=== PATIENT | female | born 1970 | race Caucasian/White ===

== ENCOUNTER 2020-11-22 23:37 | Emergency (ER) | payer OTHER ==
[2020-11-22 23:42] VITALS: TEMP 99.7
[2020-11-23] MEDS ORDERED: AMOXIC-POT CLAV 875MG STARTER PACK 2 TAB BTL PO STA (00:12)
[2020-11-23] MEDS ORDERED: KETOROLAC 15 MG/ML 1 ML VIAL IM STA (00:19)
[2020-11-23 00:54] VITALS: BP 198/114; PULSE 98; RESP 16
--- NOTE | 2020-11-23 00:59 | ED ---
ENT HPI - General Chief complaint: Dental/Oral Stated complaint: Facial Swelling Time Seen by Provider: 11/23/20 00:11 Source: patient Mode of arrival: ambulatory Limitations: no limitations - History of Present Illness Initial comments: 50yo female presenting for cc of right lower dental pain. pt states that for the past day her right lower tooth has been bugging her. she states it was chipped for quite some time prior to the development of this pain. Patient denies any fevers chest pain shortness of breath drooling difficulty tolerating oral secre tions difficulty breathing. Patient denies any swelling of the neck or below the tongue. Patient denies fevers chills or general malaise. Patient states she does have some right-sided facial swelling.Patient denies additional complaints. - Related Data Previous Rx's Medication Instructions Recorded Amoxic-Pot Clav 875-125Mg 1 tab PO Q12HR 7 Days #14 tab 11/23/20 [Augmentin 875-125] Allergies Allergy/AdvReac Type Severity Reaction Status Date / Time acetaminophen [From Lortab] Allergy Unknown Verified 11/22/20 23:43 codeine Allergy Unknown Verified 11/22/20 23:43 hydrocodone [From Lortab] Allergy Unknown Verified 11/22/20 23:43 metronidazole [From Flagyl] Allergy Unknown Verified 11/22/20 23:43 Review of Systems ROS Statement: Those systems with pertinent positive or pertinent negative responses have been documented in the HPI. ROS Other: All systems not noted in ROS Statement are negative. Past Medical History Past Medical History: No Reported History History of Any Multi-Drug Resistant Organisms: None Reported Past Surgical History: Cholecystectomy, Hysterectomy Additional Past Surgical History / Comment(s): trigger finger surgery. Past Psychological History: No Psychological Hx Reported Smoking Status: Current every day smoker Past Alcohol Use History: None Reported Past Drug Use History: None Reported General Exam - General Exam Comments Initial Comments: General: The patient is awake and alert, in no distress Eye: +3 mm pupils are equal, round and reactive to light, extra-ocular movements are intact. No nystagmus. There is normal conjunctiva bilaterally. No signs of icterus. Ears, nose, mouth and throat: There are moist mucous membranes and no oral lesions. patient overall is very poor dentition. There is multiple cracked teeth especially in the right lower side. Patient has tenderness to percussion of tooth number 29, no apparent fluctuant area of abscess. Patient does have some mild right-sided facial swelling it does not extend below the angle of the mandible there is no swelling below the tongue nor pain to palpation under the tongue patient hasn't no tripoding no drooling no stridor she is to tolerate oral secretions without difficulty Neck: The neck is supple, there is no tenderness or JVD. Cardiovascular: There is a regular rate and rhythm. No murmur, rub or gallop is appreciated. Respiratory: Lungs are clear to auscultation, respirations are non-labored, breath sounds are equal. No wheezes, stridor, rales, or rhonchi Musculoskeletal: Normal ROM, no tenderness. Strength 5/5. Sensation intact. Pulses equal bilaterally 2+. Neurological: A&O x 3. CN II-XII intact grossly, There are no obvious motor or sensory deficits. Coordination appears grossly intact. Speech is normal. Skin: Skin is warm and dry and no rashes or lesions are noted. Psychiatric: Cooperative, appropriate mood & affect, normal judgment. Limitations: no limitations Course Vital Signs 11/22/20 11/23/20 23:38 00:53 Temperature 99.7 F H Pulse Rate 110 H 98 Respiratory 20 16 Rate Blood Pressure 230/92 198/114 O2 Sat by Pulse 99 98 Oximetry Medical Decision Making - Medical Decision Making 50yo female presenting for cc of dental pain. states she is too sensitive for pain medications but is in a lot of pain. no signs of ludqigs angina. pt does not appear toxic. BP elevated but she states she is in so much pain and her dog just had a seizure. pt denies hx of HTN, denies cp, headaches, dyspnea, leg swelling, urinary changes/decreased urination, nausea, vomiting, viscual changes, weakness, sensation deficits. patient will be initiated oral antibiotics she is to follow-up with a dentist return for worsening swelling swelling below the tongues welling of the neck difficulty tolerating oral secretions or breathing, fevers, facial redness. patient statse she will f/u for blood pressure elevated and monitor at home. felt to be situations due to pain/life stressors. pt discharged appearing well. Attending Damaso Disposition Clinical Impression: Pain, dental, Facial swelling, Elevated blood lead level Disposition: HOME SELF-CARE Condition: Good Instructions (If sedation given, give patient instructions): Dental Abscess (ED), Toothache (ED) Additional Instructions: Please use medication as discussed. Please follow-up with dentist in the next 1-2 days. Please return to emergency room if the symptoms increase or worsen or for any other concerns-fevers worsening swelling swelling below the tongue swelling of the neck. Prescriptions: Amoxic-Pot Clav 875-125Mg [Augmentin 875-125] 1 tab PO Q12HR 7 Days #14 tab Is patient prescribed a controlled substance at d/c from ED?: No Referrals: None,Stated [Primary Care Provider] - 1-2 days Time of Disposition: 01:09
== END 2020-11-23 01:17 | disposition home or self-care (01) ==
LOC: EC 23:37
DX: R22.0 Localized swelling, mass and lump, head (principal); K08.89 Other specified disorders of teeth and supporting structures; R03.0 Elevated blood-pressure reading, without diagnosis of hypertension; F17.200 Nicotine dependence, unspecified, uncomplicated; Z88.6 Allergy status to analgesic agent; Z88.5 Allergy status to narcotic agent; Z88.1 Allergy status to other antibiotic agents
CPT/HCPCS: 99282; 96372; J1885